=== PATIENT | female | born 1935 | race African-American/Black ===

== ENCOUNTER 2022-04-06 17:35 | Emergency (ER) | payer MEDICAID, OTHER ==
[~2022-04-06] VITALS: Ht 170.2 cm; Wt 61.0 kg
[2022-04-06 17:43] VITALS: BP 210/105
== END 2022-04-06 18:24 | disposition left against medical advice (07) ==
LOC: ER 17:35
DX: I10 Essential (primary) hypertension (principal)
CPT/HCPCS: 99281